=== PATIENT | male | born 1955 | race Caucasian/White ===

== ENCOUNTER 2018-04-27 09:24 | Day surgery (SDC) | payer BC ==
[~2018-04-27] VITALS: Ht 182.9 cm; Wt 99.1 kg
[~2018-04-27 09:24] MED LIST: Advil200 M1 PO; CYCL10 PO; FLAX PO; HYDMOR4 PO; LORA1 PO; LOVA40 PO; METF500 PO; ROSU5 PO; SITA25T2
[2018-04-27] MEDS ORDERED: GLIM2 PO (10:19)
--- NOTE | 2018-04-27 11:05 | NUR ---
04/27/18 1105 Sharmin Kent 1 CLIP PLACED ON THE ASCENDING COLON POLYP.
== END 2018-04-27 12:04 | disposition home or self-care (01) ==
LOC: ORSCSDS 09:24
PROVIDERS: Internal Medicine Gastroenterology
PROC: 0DBK8ZX Excision of Ascending Colon, Via Natural or Artificial Opening Endoscopic, Diagnostic (ICD-10-PCS; principal; 2018-04-27 10:45)
PROC: 0DBL8ZX Excision of Transverse Colon, Via Natural or Artificial Opening Endoscopic, Diagnostic (ICD-10-PCS; principal; 2018-04-27 10:45)
DX: Z12.11 Encounter for screening for malignant neoplasm of colon (principal); D12.2 Benign neoplasm of ascending colon; D12.3 Benign neoplasm of transverse colon; K64.8 Other hemorrhoids; K57.30 Diverticulosis of large intestine without perforation or abscess without bleeding; K21.9 Gastro-esophageal reflux disease without esophagitis; E11.9 Type 2 diabetes mellitus without complications; G47.33 Obstructive sleep apnea (adult) (pediatric); Z79.899 Other long term (current) drug therapy
CPT/HCPCS: 82947; 88305; J7120

== ENCOUNTER 2019-01-25 11:01 | Day surgery (SDC) | payer BC ==
[~2019-01-25] VITALS: Ht 182.9 cm; Wt 96.7 kg
[~2019-01-25 11:01] MED LIST changes: +FLAXSEED1000 MG PO; +GLIM2 PO
== END 2019-01-25 12:49 | disposition home or self-care (01) ==
LOC: ORSCSDS 11:01
PROVIDERS: Internal Medicine Gastroenterology
PROC: 0DBK8ZX Excision of Ascending Colon, Via Natural or Artificial Opening Endoscopic, Diagnostic (ICD-10-PCS; principal; 2019-01-25 12:30)
DX: Z12.11 Encounter for screening for malignant neoplasm of colon (principal); Z86.010 Personal history of colon polyps; D12.2 Benign neoplasm of ascending colon; K64.8 Other hemorrhoids; G47.33 Obstructive sleep apnea (adult) (pediatric); E11.9 Type 2 diabetes mellitus without complications; E78.5 Hyperlipidemia, unspecified; Z79.899 Other long term (current) drug therapy; Z79.84 Long term (current) use of oral hypoglycemic drugs
CPT/HCPCS: 82947; 88305; J2704; J7120

== ENCOUNTER 2022-09-08 08:57 | Day surgery (SDC) | payer OTHER ==
[~2022-09-08] VITALS: Ht 182.9 cm; Wt 98.8 kg
[2022-09-08] MEDS ORDERED: LISI20 (09:20)
[2022-09-08] MEDS ORDERED: GLIM4 (09:21)
[2022-09-08] MEDS ORDERED: Actos15 MG (09:22)
[2022-09-08] MEDS ORDERED: Aspir 8181 MG PO (09:47)
[2022-09-08 11:06] VITALS: BP 120/88
== END 2022-09-08 11:12 | disposition home or self-care (01) ==
LOC: ORSCSDS 08:57
PROVIDERS: Student in an Organized Health Care Education/Training Program
PROC: 0DBL8ZX Excision of Transverse Colon, Via Natural or Artificial Opening Endoscopic, Diagnostic (ICD-10-PCS; principal; 2022-09-08 10:30)
PROC: 0DBH8ZX Excision of Cecum, Via Natural or Artificial Opening Endoscopic, Diagnostic (ICD-10-PCS; principal; 2022-09-08 10:30)
PROC: 0DBK8ZX Excision of Ascending Colon, Via Natural or Artificial Opening Endoscopic, Diagnostic (ICD-10-PCS; principal; 2022-09-08 10:30)
DX: Z12.11 Encounter for screening for malignant neoplasm of colon (principal); Z86.010 Personal history of colon polyps; D12.0 Benign neoplasm of cecum; D12.2 Benign neoplasm of ascending colon; D12.3 Benign neoplasm of transverse colon; K57.30 Diverticulosis of large intestine without perforation or abscess without bleeding; K64.8 Other hemorrhoids; E11.9 Type 2 diabetes mellitus without complications; G47.33 Obstructive sleep apnea (adult) (pediatric); I10 Essential (primary) hypertension; Z79.84 Long term (current) use of oral hypoglycemic drugs; Z79.899 Other long term (current) drug therapy; Z79.82 Long term (current) use of aspirin
CPT/HCPCS: 82947; 88305; J2704; J3010; J7120